=== PATIENT | female | born 1980 | race Two or more races ===

== ENCOUNTER 2018-05-31 09:59 | Emergency (ER) | payer SELFPAY ==
[2018-05-31 10:12] VITALS: BP 121/99
--- NOTE | 2018-05-31 10:14 | UC ---
Lower Extremity/Ankle HPI - HPI Summary HPI Summary: 38 yo female presents with RIGHT ankle injury. She tells me that yesterday at work there was a wet spot on the floor and she slipped - inverting her right ankle. Did not hit her head or have LOC. She was able to get to her feet and ambulate following the fall. Has some pain last night, but feels a bit better this morning. She is ambulatory without assistance. She is most concerned because she fractured this ankle about 3 years ago. She has been icing the area and feel better with this. Denies numbness or tingling. She also mentions that she is trying to get and may be today - she is unsure and has not taken a test. - History of Current Complaint Chief Complaint: UCLowerExtremity Stated Complaint: R ANKLE INJURY Time Seen by Provider: 05/31/18 10:14 Hx Obtained From: Patient Hx Last Menstrual Period: 05/07/18 Onset/Duration: Sudden Onset Severity Initially: Moderate Severity Currently: Moderate Pain Intensity: 5 Pain Scale Used: 0-10 Numeric Alleviating Factor(s): Rest, Elevation Able to Bear Weight: Yes - Allergies/Home Medications Allergies/Adverse Reactions: Allergies Allergy/AdvReac Type Severity Reaction Status Date / Time No Known Allergies Allergy Verified 05/31/18 10:13 Home Medications: Home Medications NK [No Home Medications Reported] 05/31/18 [History Confirmed 05/31/18] PMH/Surg Hx/FS Hx/Imm Hx - Additional Past Medical History Additional PMH: None - Surgical History Surgical History: Yes Surgery Procedure, Year, and Place: - Family History Known Family History: Positive: None - Social History Lives: With Family Alcohol Use: None Substance Use Type: None Smoking Status (MU): Never Smoked Tobacco Review of Systems All Other Systems Reviewed And Are Negative: Yes Constitutional: Positive: Negative Skin: Positive: Negative Respiratory: Positive: Negative Cardiovascular: Positive: Negative Neurovascular: Positive: Negative Musculoskeletal: Positive: Other: - Right ankle pain Neurological: Positive: Negative Psychological: Positive: Negative Physical Exam - Summary Physical Exam Summary: GENERAL: NAD. WDWN. No pain distress. SKIN: No rashes, sores, lesions, or open wounds. CHEST: No accessory muscle use. Breathing comfortably and in no distress. CV: Pulses intact PT and DP. Cap refill <2seconds MSK: RIGHT ANKLE: Mild TTP overlying ATFL. Strength 5/5. No edema or obvious bony deformities. Negative talar tilt. No increased laxity. NEURO: Alert. Sensations intact and symmetric B/L LEs PSYCH: Age appropriate behavior. Triage Information Reviewed: Yes Vital Signs: Initial Vital Signs Temp 99.2 F 05/31/18 10:08 Pulse 88 05/31/18 10:08 Resp 18 05/31/18 10:08 BP 121/99 05/31/18 10:08 Pulse Ox 100 05/31/18 10:08 Laboratory Tests 05/31/18 10:52 POC Ur Test Positive A Vital Signs Reviewed: Yes Lower Extremity Course/Dx - Course Course Of Treatment: XR: IMPRESSION: No fracture of the right ankle is noted. Soft tissue swelling is noted. POC positive. Discussed with pt and she is very happy about this. She is from [place] and wishes to f/u with PCP and OBGYN back there. Regarding her ankle, suspect sprain/strain. Advised to RICE and take tylenol prn pain. F/u if symptoms do not continue to improve. - Differential Dx/Diagnosis Provider Diagnosis: Right ankle sprain, Discharge - Sign-Out/Discharge Documenting (check all that apply): Patient Departure All imaging exams completed and their final reports reviewed: Yes - Discharge Plan Condition: Stable Disposition: HOME Patient Education Materials: Vitamins (By mouth), (ED), Ankle Sprain (ED) Referrals: No Primary Care Phys,NOPCP [Primary Care Provider] - Additional Instructions: If you develop a fever, shortness of breath, chest pain, new or worsening symptoms - please call your PCP or go to the ED. 1) Your ankle X-Ray was normal. Rest, Ice, and elevate your ankle as much as possible - this appears to be a sprain that should heal with time. 2) Please follow up with your primary doctor or OBGYN in [place] for management /monitoring of your . Congratulations! - Billing Disposition and Condition Condition: STABLE Disposition: Home
== END 2018-05-31 11:49 | disposition home or self-care (01) ==
LOC: UCEAST 09:59
DX: O9A.219 Injury, poisoning and certain other consequences of external causes complicating pregnancy, unspecified trimester (principal); S93.401A Sprain of unspecified ligament of right ankle, initial encounter; W18.49XA Other slipping, tripping and stumbling without falling, initial encounter; Y92.9 Unspecified place or not applicable
CPT/HCPCS: 84702; 99201; G0463

== ENCOUNTER 2019-05-09 22:16 | Emergency (ER) | payer SELFPAY ==
[2019-05-09 23:06] VITALS: BP 118/70
== END 2019-05-09 23:04 | disposition left against medical advice (07) ==
LOC: ED 22:16
DX: R07.89 Other chest pain (principal); Z53.21 Procedure and treatment not carried out due to patient leaving prior to being seen by health care provider
CPT/HCPCS: 93005; 99281

== ENCOUNTER 2020-03-27 09:32 | Inpatient (IN) ==
[2020-03-27] MEDS ORDERED: Lactated Ringers 1000 ml BAG 1,000 ML IV ONE (10:08)
[2020-03-27] MEDS ORDERED: Buffered Lidocaine 1% SYRIN 1 ml INTRADERM ONE (10:08)
[2020-03-27] MEDS ORDERED: Lactated Ringers 1000 ml BAG 1,000 ML IV SCH ×2 (11:00→17:00)
[2020-03-27 11:50] LABS: ABS Basophils 0.1 10^3/ul (0-0.2); ABS Lymphocytes 1.9 10^3/ul (1.0-4.8); ABS Monocytes 0.9 10^3/ul (0-0.8); ABS Neutrophils 7.2 10^3/ul (1.5-7.7); Eosinophil % 0.4 %; Hematocrit 36 % (35-47); Hemoglobin 12.2 g/dL (12.0-16.0); Lymphocyte % 18.8 %; Mean Corpuscular HGB Conc 34 g/dL (31-36); Mean Corpuscular Hemoglobin 29 pg (27-31); Mean Corpuscular Volume 85 fL (80-97); Mean Platelet Volume 9.4 fL (7.4-10.4); Platelet Count 233 10^3/uL (150-450); Red Blood Count 4.22 10^6 /uL (3.70-4.87); Red Cell Distribution Width 13 % (10-15); White Blood Count 10.1 10^3/uL (3.5-10.8)
[2020-03-27] MEDS ORDERED: Betamethasone 6 mg/ml 5 ml VIAL IM ONE (11:55)
[2020-03-27 12:10] LABS: Urine Benzodiazepine Screen None Detected (None Detect); Urine Cannabinoids Screen None Detected (None Detect); Urine Opiates Screen None Detected (None Detect)
[2020-03-27] MEDS ORDERED: Oxytocin in LR 20 UNITS/1,000 ML BAG IVPB ONE (15:51)
[2020-03-27] MEDS ORDERED: Dibucaine 1% OINT 28.35 GM TUBE PR PRN (16:14)
[2020-03-27] MEDS ORDERED: Witch Hazel PAD JAR TOPICAL PRN (16:14)
[2020-03-27] MEDS ORDERED: Oxytocin in LR 20 UNITS/1,000 ML BAG IVPB SCH (17:00)
[2020-03-27] MEDS ORDERED: Lidocaine 1% VIAL 10 MG/ML VIAL ONE (21:21)
[2020-03-28 06:52] LABS: Hematocrit 36 % (35-47); Hemoglobin 12.1 g/dL (12.0-16.0); Mean Corpuscular HGB Conc 34 g/dL (31-36); Mean Corpuscular Hemoglobin 29 pg (27-31); Mean Corpuscular Volume 86 fL (80-97); Mean Platelet Volume 9.1 fL (7.4-10.4); Platelet Count 244 10^3/uL (150-450); Red Blood Count 4.17 10^6 /uL (3.70-4.87); Red Cell Distribution Width 13 % (10-15); White Blood Count 21.2 10^3/uL (3.5-10.8)
[2020-03-28 08:49] LABS: ABS Basophils 0.1 10^3/ul (0-0.2); ABS Lymphocytes 1.6 10^3/ul (1.0-4.8); ABS Monocytes 1.8 10^3/ul (0-0.8); ABS Neutrophils 17.7 10^3/ul (1.5-7.7); Eosinophil % 0.1 %; Lymphocyte % 7.7 %
[2020-03-29 08:20] VITALS: BP 111/54
== END 2020-03-29 12:35 | disposition home or self-care (01) | DRG 560 ==
LOC: MCHOBOUT 09:32 → MCHOB 10:03
PROVIDERS: ADMIT Obstetrics & Gynecology; ATTEND Obstetrics & Gynecology